=== PATIENT | female | born 1945 | race Caucasian/White ===

== ENCOUNTER 2019-05-17 18:59 | Emergency (ER) | payer OTHER, BC ==
[~2019-05-17] VITALS: Ht 152.4 cm; Wt 68.9 kg
[2019-05-17 20:30] VITALS: BP 123/57
== END 2019-05-17 20:15 | disposition home or self-care (01) ==
LOC: ED 18:59
DX: C44.40 Unspecified malignant neoplasm of skin of scalp and neck (principal)